=== PATIENT | male | born 1960 | race Hispanic/Latino ===

== ENCOUNTER 2022-10-18 00:15 | Inpatient (IN) | payer BC ==
[2022-10-18 03:59] LABS: #Eosinphils 0.2 thou/uL (0.0-0.7); #Lymphocytes 2.4 thou/uL (1.20-3.40); #Monocytes 0.7 thou/uL (0.11-0.59); #Neutrophils 7.4 thou/uL (1.40-6.50); %Basophils 0.2 % (0.0-1.0); %Eosinophils 1.5 % (0.0-10.0); %Monocytes 6.7 % (0.0-10.0); %Neutrophils 69.6 % (42.0-75.0); Hemoglobin 13.9 g/dL (14.0-18.0); Mean Corpuscular HGB CONC 32.8 g/dL (32.0-36.0); Mean Corpuscular Hemoglobin 27.8 pg (27.0-31.0); Mean Corpuscular Volume 84.6 fl (78.0-98.0); Mean Platelet Volume 7.7 fL (7.4-10.4); Platelet Count 276 10x3/uL (130-400); RBC Distribution Width 13.1 % (11.5-14.5); Red Blood Cell (RBC) Count 4.99 mill/uL (4.70-6.10); White Blood Cell (WBC) Count 10.7 10x3/uL (4.8-10.8)
[2022-10-18 04:10] LABS: ALT (SGPT) 7 U/L (8-55); AST (SGOT) 12 U/L (5-34); Albumin 3.4 g/dL (3.5-5.0); Alkaline Phosphatase 68 U/L (40-110); Anion Gap 14 mmol/L (10-20); BUN (Urea Nitrogen) 15 mg/dL (8.4-25.7); Bilirubin, Total 0.9 mg/dL (0.2-1.2); Calc. Creatinine Clearance 0 mL/min (70-130); Carbon Dioxide 21 mmol/L (22-29); Chloride 105 mmol/L (98-107); Estimated GFR 59; Globulin 2.9 g/dL (2.4-3.5); Glucose 198 mg/dL (70-105); Potassium 4.2 mmol/L (3.5-5.1); Protein, Total 6.3 g/dL (6.0-8.3); Sodium 136 mmol/L (136-145)
[2022-10-18] MEDS ORDERED: Furosemide 40 MG/4 ML VIAL ONE (04:27)
[2022-10-18] MEDS ORDERED: Nitroglycerin 2% Ointment 1 INCH/1 GM Packet ONE (04:27)
[2022-10-18 04:35] LABS: CKMB 1.6 ng/mL (0-6.6)
[2022-10-18] MEDS ORDERED: Aspirin Chewable 81 MG TAB ONE (05:15)
[2022-10-18 05:52] LABS: Prothrombin Time 13.1 sec (12.0-14.7)
[2022-10-18 05:54] LABS: Magnesium 2.1 mg/dL (1.6-2.6)
[2022-10-18 07:44] LABS: Troponin I 0.402 ng/mL (< 0.028)
[2022-10-18] MEDS ORDERED: Ondansetron PF 4 MG/2 ML Vial IVP PRN (07:59)
[2022-10-18] MEDS ORDERED: Ondansetron ODT 4 MG TAB PO PRN (07:59)
[2022-10-18] MEDS ORDERED: Acetaminophen 325 MG TAB PO PRN (07:59)
[2022-10-18] MEDS ORDERED: Dextrose 50% Abboject 50 ML SYRINGE SLOW IVP PRN (08:16)
[2022-10-18] MEDS ORDERED: Dextrose 5% in Water 1,000 ML IV PRN (08:16)
[2022-10-18 09:40] LABS: Hemoglobin A1c 10.3 % (4.0-6.0)
[2022-10-18 10:17] LABS: Critical Call Chem Troponin I RESULT DECREASING; Troponin I 0.379 ng/mL (< 0.028)
[2022-10-18] MEDS ORDERED: HumaLOG 300 UNITS/3 ML VIAL ONE (10:47)
[2022-10-18] MEDS: HumaLOG 300 UNITS/3 ML VIAL SC PRN (10:48)
[2022-10-18] MEDS ORDERED: Acetaminophen 325 MG TAB ONE (10:51)
[2022-10-18 12:18] LABS: SARS-CoV-2 NAA Rapid Test Not Detected (NotDetected)
[2022-10-18 15:14] VITALS: BMI 47.7
[2022-10-18] MEDS ORDERED: Ketorolac Tromethamine 30 MG/ML VIAL IVP SCH (16:30)
[2022-10-18] MEDS: Metoprolol Tartrate 100 MG TAB PO SCH (21:16)
[2022-10-18] MEDS: Atorvastatin Calcium 20 MG TAB PO SCH (21:16)
[2022-10-19 04:54] LABS: #Basophils 0.1 thou/uL (0.0-0.2); #Eosinphils 0.2 thou/uL (0.0-0.7); #Monocytes 0.7 thou/uL (0.11-0.59); #Neutrophils 6.5 thou/uL (1.40-6.50); %Basophils 0.5 % (0.0-1.0); %Eosinophils 2.3 % (0.0-10.0); %Lymphocytes 21.4 % (21.0-51.0); %Monocytes 7.4 % (0.0-10.0); %Neutrophils 68.3 % (42.0-75.0); Hemoglobin 13.9 g/dL (14.0-18.0); Mean Corpuscular HGB CONC 32.6 g/dL (32.0-36.0); Mean Corpuscular Hemoglobin 27.4 pg (27.0-31.0); Mean Corpuscular Volume 84.3 fl (78.0-98.0); Mean Platelet Volume 7.8 fL (7.4-10.4); Platelet Count 301 10x3/uL (130-400); RBC Distribution Width 13.3 % (11.5-14.5); Red Blood Cell (RBC) Count 5.06 mill/uL (4.70-6.10); White Blood Cell (WBC) Count 9.5 10x3/uL (4.8-10.8)
[2022-10-19 05:15] LABS: Anion Gap 16 mmol/L (10-20); BUN (Urea Nitrogen) 16 mg/dL (8.4-25.7); Calc. Creatinine Clearance 99 mL/min (70-130); Calcium 9.1 mg/dL (7.8-10.44); Carbon Dioxide 21 mmol/L (22-29); Cardiac Risk 4.8 (Less than 4.5); Chloride 102 mmol/L (98-107); Cholesterol 227 mg/dl (< 200 Desired); Estimated GFR 51; Glucose 231 mg/dL (70-105); HDL Cholesterol 47 mg/dL (>60 Neg Risk); LDL Cholesterol, Calculated 134 mg/dL; Potassium 4.1 mmol/L (3.5-5.1); Sodium 135 mmol/L (136-145); Triglycerides 231 mg/dL (Less than 150)
[2022-10-19] MEDS: Aspirin 81 mg Enteric Coated Tablet PO SCH (08:49)
[2022-10-19] MEDS: Metoprolol Tartrate 100 MG TAB PO SCH ×2 (08:49→21:54)
[2022-10-19] MEDS: Valsartan 80 MG TAB PO SCH (08:50)
[2022-10-19] MEDS: Atorvastatin Calcium 20 MG TAB PO SCH (21:54)
[2022-10-20] MEDS ORDERED: cloNIDine 0.1 MG TAB PO SCH (00:15)
[2022-10-20 05:19] LABS: #Eosinphils 0.2 thou/uL (0.0-0.7); #Monocytes 0.8 thou/uL (0.11-0.59); #Neutrophils 5.4 thou/uL (1.40-6.50); %Basophils 0.5 % (0.0-1.0); %Eosinophils 2.9 % (0.0-10.0); %Lymphocytes 23.7 % (21.0-51.0); %Monocytes 9.5 % (0.0-10.0); %Neutrophils 63.4 % (42.0-75.0); Hemoglobin 13.9 g/dL (14.0-18.0); Mean Corpuscular HGB CONC 32.5 g/dL (32.0-36.0); Mean Corpuscular Volume 86.3 fl (78.0-98.0); Mean Platelet Volume 8.7 fL (7.4-10.4); Platelet Count 242 10x3/uL (130-400); RBC Distribution Width 13.4 % (11.5-14.5); Red Blood Cell (RBC) Count 4.95 mill/uL (4.70-6.10); White Blood Cell (WBC) Count 8.5 10x3/uL (4.8-10.8)
[2022-10-20 05:53] LABS: Anion Gap 15 mmol/L (10-20); BUN (Urea Nitrogen) 19 mg/dL (8.4-25.7); Calc. Creatinine Clearance 88 mL/min (70-130); Calcium 8.8 mg/dL (7.8-10.44); Carbon Dioxide 20 mmol/L (22-29); Chloride 103 mmol/L (98-107); Estimated GFR 44; Glucose 241 mg/dL (70-105); Potassium 4.7 mmol/L (3.5-5.1); Sodium 133 mmol/L (136-145)
[2022-10-20] MEDS: Valsartan 80 MG TAB PO SCH (06:17)
[2022-10-20] MEDS: Metoprolol Tartrate 100 MG TAB PO SCH (06:17)
[2022-10-20] MEDS: Aspirin 81 mg Enteric Coated Tablet PO SCH (06:17)
[2022-10-20] MEDS: Sodium Chloride 0.9% 1,000 ML IV SCH (13:31)
[2022-10-20] MEDS ORDERED: Valsartan 80 MG TAB PO SCH (16:04)
[2022-10-20] MEDS ORDERED: Carvedilol 25 MG TAB PO SCH (16:15)
[2022-10-20] MEDS: hydrALAZINE 25 MG TAB PO SCH ×2 (16:54→20:34)
[2022-10-20] MEDS: HumaLOG 300 UNITS/3 ML VIAL SC PRN ×2 (16:59→20:32)
[2022-10-20] MEDS: Atorvastatin Calcium 20 MG TAB PO SCH (20:34)
[2022-10-21] MEDS ORDERED: cloNIDine 0.1 MG TAB PO SCH ×2 (00:30→23:59)
[2022-10-21] MEDS: Sodium Chloride 0.9% 1,000 ML IV SCH ×3 (01:50→21:31)
[2022-10-21 04:51] LABS: #Eosinphils 0.2 thou/uL (0.0-0.7); #Lymphocytes 2.1 thou/uL (1.20-3.40); #Monocytes 0.9 thou/uL (0.11-0.59); #Neutrophils 4.7 thou/uL (1.40-6.50); %Basophils 0.6 % (0.0-1.0); %Eosinophils 2.6 % (0.0-10.0); %Lymphocytes 26.1 % (21.0-51.0); %Monocytes 11.3 % (0.0-10.0); %Neutrophils 59.5 % (42.0-75.0); Hemoglobin 12.6 g/dL (14.0-18.0); Mean Corpuscular HGB CONC 32.9 g/dL (32.0-36.0); Mean Corpuscular Hemoglobin 28.4 pg (27.0-31.0); Mean Corpuscular Volume 86.2 fl (78.0-98.0); Mean Platelet Volume 7.8 fL (7.4-10.4); Platelet Count 254 10x3/uL (130-400); RBC Distribution Width 13.2 % (11.5-14.5); Red Blood Cell (RBC) Count 4.44 mill/uL (4.70-6.10); White Blood Cell (WBC) Count 7.9 10x3/uL (4.8-10.8)
[2022-10-21 05:13] LABS: Anion Gap 13 mmol/L (10-20); BUN (Urea Nitrogen) 19 mg/dL (8.4-25.7); Calc. Creatinine Clearance 94 mL/min (70-130); Calcium 8.9 mg/dL (7.8-10.44); Carbon Dioxide 23 mmol/L (22-29); Chloride 104 mmol/L (98-107); Estimated GFR 47; Glucose 190 mg/dL (70-105); Potassium 3.9 mmol/L (3.5-5.1); Sodium 136 mmol/L (136-145)
[2022-10-21] MEDS: HumaLOG 300 UNITS/3 ML VIAL SC PRN ×3 (05:51→20:42)
[2022-10-21] MEDS: Aspirin 81 mg Enteric Coated Tablet PO SCH (09:11)
[2022-10-21] MEDS: Carvedilol 25 MG TAB PO SCH ×2 (09:11→17:25)
[2022-10-21] MEDS: Valsartan 80 MG TAB PO SCH (09:11)
[2022-10-21] MEDS: hydrALAZINE 25 MG TAB PO SCH ×4 (09:11→20:41)
[2022-10-21] MEDS: HYDROcodone/Acetaminophen 10/325 mg Tablet PO PRN (13:19)
[2022-10-21] MEDS: Atorvastatin Calcium 20 MG TAB PO SCH (20:42)
[2022-10-22] MEDS: HYDROcodone/Acetaminophen 10/325 mg Tablet PO PRN ×2 (01:30→21:36)
[2022-10-22 04:58] LABS: #Eosinphils 0.3 thou/uL (0.0-0.7); #Lymphocytes 2.5 thou/uL (1.20-3.40); %Basophils 0.3 % (0.0-1.0); %Eosinophils 3.2 % (0.0-10.0); %Neutrophils 57.4 % (42.0-75.0); Hemoglobin 12.4 g/dL (14.0-18.0); Mean Corpuscular HGB CONC 32.5 g/dL (32.0-36.0); Mean Corpuscular Hemoglobin 28.1 pg (27.0-31.0); Mean Corpuscular Volume 86.4 fl (78.0-98.0); Mean Platelet Volume 7.6 fL (7.4-10.4); Platelet Count 271 10x3/uL (130-400); RBC Distribution Width 13.2 % (11.5-14.5); Red Blood Cell (RBC) Count 4.42 mill/uL (4.70-6.10); White Blood Cell (WBC) Count 8.7 10x3/uL (4.8-10.8)
[2022-10-22 05:26] LABS: Anion Gap 13 mmol/L (10-20); BUN (Urea Nitrogen) 17 mg/dL (8.4-25.7); Calc. Creatinine Clearance 104 mL/min (70-130); Calcium 8.8 mg/dL (7.8-10.44); Carbon Dioxide 23 mmol/L (22-29); Chloride 105 mmol/L (98-107); Estimated GFR 53; Glucose 169 mg/dL (70-105); Sodium 137 mmol/L (136-145)
[2022-10-22] MEDS: Carvedilol 25 MG TAB PO SCH ×2 (08:00→16:44)
[2022-10-22] MEDS: hydrALAZINE 25 MG TAB PO SCH ×3 (09:06→20:17)
[2022-10-22] MEDS: Valsartan 80 MG TAB PO SCH (09:06)
[2022-10-22] MEDS: Aspirin 81 mg Enteric Coated Tablet PO SCH (09:06)
[2022-10-22] MEDS ORDERED: Carvedilol 25 MG TAB PO SCH ×2 (10:23→10:45)
[2022-10-22] MEDS: HumaLOG 300 UNITS/3 ML VIAL SC PRN ×3 (10:55→21:34)
[2022-10-22] MEDS: Atorvastatin Calcium 20 MG TAB PO SCH (20:17)
[2022-10-23] MEDS: cloNIDine 0.1 MG TAB PO PRN (00:15)
[2022-10-23 05:28] LABS: #Basophils 0.1 thou/uL (0.0-0.2); #Eosinphils 0.2 thou/uL (0.0-0.7); #Lymphocytes 1.9 thou/uL (1.20-3.40); #Monocytes 0.8 thou/uL (0.11-0.59); #Neutrophils 4.6 thou/uL (1.40-6.50); %Basophils 0.7 % (0.0-1.0); %Eosinophils 3.3 % (0.0-10.0); %Lymphocytes 25.3 % (21.0-51.0); %Monocytes 10.4 % (0.0-10.0); %Neutrophils 60.4 % (42.0-75.0); Hemoglobin 12.7 g/dL (14.0-18.0); Mean Corpuscular HGB CONC 32.3 g/dL (32.0-36.0); Mean Corpuscular Volume 86.8 fl (78.0-98.0); Mean Platelet Volume 7.7 fL (7.4-10.4); Platelet Count 277 10x3/uL (130-400); RBC Distribution Width 13.2 % (11.5-14.5); Red Blood Cell (RBC) Count 4.55 mill/uL (4.70-6.10); White Blood Cell (WBC) Count 7.6 10x3/uL (4.8-10.8)
[2022-10-23 05:45] LABS: Anion Gap 14 mmol/L (10-20); BUN (Urea Nitrogen) 18 mg/dL (8.4-25.7); Calc. Creatinine Clearance 100 mL/min (70-130); Calcium 8.9 mg/dL (7.8-10.44); Carbon Dioxide 24 mmol/L (22-29); Chloride 104 mmol/L (98-107); Estimated GFR 51; Glucose 206 mg/dL (70-105); Potassium 4.5 mmol/L (3.5-5.1); Sodium 137 mmol/L (136-145)
[2022-10-23] MEDS: HumaLOG 300 UNITS/3 ML VIAL SC PRN ×4 (05:55→22:11)
[2022-10-23] MEDS: Carvedilol 25 MG TAB PO SCH ×2 (08:09→17:17)
[2022-10-23] MEDS: Valsartan 80 MG TAB PO SCH (08:09)
[2022-10-23] MEDS: hydrALAZINE 25 MG TAB PO SCH ×3 (08:09→22:08)
[2022-10-23] MEDS: Aspirin 81 mg Enteric Coated Tablet PO SCH (08:09)
[2022-10-23] MEDS ORDERED: Tamsulosin HCl 0.4 MG CAP PO SCH (10:00)
[2022-10-23] MEDS: Isosorbide Dinitrate 20 MG TAB PO SCH ×2 (15:19→22:08)
[2022-10-23] MEDS: Atorvastatin Calcium 20 MG TAB PO SCH (22:07)
[2022-10-24 05:16] LABS: Anion Gap 12 mmol/L (10-20); BUN (Urea Nitrogen) 24 mg/dL (8.4-25.7); Calc. Creatinine Clearance 93 mL/min (70-130); Calcium 8.7 mg/dL (7.8-10.44); Carbon Dioxide 24 mmol/L (22-29); Chloride 105 mmol/L (98-107); Estimated GFR 47; Glucose 241 mg/dL (70-105); Magnesium 2.2 mg/dL (1.6-2.6); Potassium 4.2 mmol/L (3.5-5.1); Sodium 137 mmol/L (136-145)
[2022-10-24] MEDS: Valsartan 80 MG TAB PO SCH (05:57)
[2022-10-24] MEDS: hydrALAZINE 25 MG TAB PO SCH ×3 (05:58→21:58)
[2022-10-24] MEDS: Aspirin 81 mg Enteric Coated Tablet PO SCH (05:59)
[2022-10-24] MEDS: Carvedilol 25 MG TAB PO SCH ×2 (05:59→16:47)
[2022-10-24] MEDS: Tamsulosin HCl 0.4 MG CAP PO SCH (05:59)
[2022-10-24] MEDS: Isosorbide Dinitrate 20 MG TAB PO SCH ×3 (06:00→21:58)
[2022-10-24] MEDS ORDERED: Verapamil 5 MG/2 ML VIAL ONE (06:24)
[2022-10-24] MEDS ORDERED: Nitroglycerin 100MG/250ML BOT 250 ML ONE (06:24)
[2022-10-24] MEDS ORDERED: Adenosine 6 MG/2 ML VIAL ONE (06:24)
[2022-10-24] MEDS ORDERED: Heparin 10,000 UNITS/ 10 ML VIAL ONE (06:24)
[2022-10-24] MEDS ORDERED: Lidocaine 1% (PF) 30 ML VIAL ONE (06:26)
[2022-10-24] MEDS ORDERED: Midazolam HCl 2 mg/2 ml Vial ONE (07:18)
[2022-10-24] MEDS ORDERED: FENTANYL 50 MCG/ML 1 ML VIAL ONE (07:18)
[2022-10-24] MEDS ORDERED: Nitroglycerin 0.4 MG TAB (25 Tab Bottle) SL PRN (08:41)
[2022-10-24] MEDS ORDERED: Acetaminophen/Codeine 30-300mg Tablet PO PRN (08:41)
[2022-10-24] MEDS ORDERED: Sodium Chloride 0.9% 200 ML IV PRN (08:41)
[2022-10-24] MEDS ORDERED: Sodium Chloride 0.9% 500 ML IV SCH (08:45)
[2022-10-24] MEDS ORDERED: Iopamidol 370 76% 100 ML VIAL ONE (09:14)
[2022-10-24 13:10] LABS: Bacteria/HPF None Seen HPF (None Seen); Bilirubin Negative (Negative); Blood, Urine Negative (Negative); Clarity Clear (Clear); Glucose, Urine (Dipstick) >=1000 mg/dL (Negative); Ketone, Urine Negative (Negative); Leukocyte Negative Leu/uL (Negative); Nitrite Negative (Negative); Protein, Urine (Dipstick) 200 mg/dL (Neg-Trace); RBC/HPF 0-3 HPF (0-3); Squamous Epithelial 0-3 HPF (0-3); Urobilinogen Normal mg/dL (Less than 2); WBC/HPF 0-3 HPF (0-3)
[2022-10-24 14:04] LABS: Creatinine, Urine 93.92 mg/dL (63-166)
[2022-10-24] MEDS: HumaLOG 300 UNITS/3 ML VIAL SC PRN ×2 (17:44→21:59)
[2022-10-24] MEDS: Atorvastatin Calcium 20 MG TAB PO SCH (21:58)
[2022-10-25 05:30] LABS: Albumin 3.3 g/dL (3.5-5.0)
[2022-10-25 05:33] LABS: Anion Gap 10 mmol/L (10-20); BUN (Urea Nitrogen) 19 mg/dL (8.4-25.7); Calc. Creatinine Clearance 98 mL/min (70-130); Carbon Dioxide 26 mmol/L (22-29); Chloride 106 mmol/L (98-107); Estimated GFR 50; Glucose 209 mg/dL (70-105); Potassium 4.3 mmol/L (3.5-5.1); Sodium 138 mmol/L (136-145)
[2022-10-25 05:34] LABS: Calcium 9.1 mg/dL (7.8-10.44)
[2022-10-25] MEDS: Aspirin 81 mg Enteric Coated Tablet PO SCH (08:58)
[2022-10-25] MEDS: Tamsulosin HCl 0.4 MG CAP PO SCH (08:58)
[2022-10-25] MEDS: hydrALAZINE 25 MG TAB PO SCH (08:58)
[2022-10-25] MEDS: Isosorbide Dinitrate 20 MG TAB PO SCH (08:58)
[2022-10-25] MEDS: Carvedilol 25 MG TAB PO SCH (09:05)
[2022-10-25] MEDS: cloNIDine 0.1 MG TAB PO PRN (09:05)
[2022-10-25] MEDS ORDERED: hydrALAZINE 25 MG TAB PO SCH ×2 (09:15→14:00)
[2022-10-25] MEDS ORDERED: Isosorbide Dinitrate 20 MG TAB PO SCH ×3 (09:15→21:00)
[2022-10-25] MEDS: HumaLOG 300 UNITS/3 ML VIAL SC PRN (11:35)
[2022-10-25] MEDS ORDERED: Carvedilol 25 MG TAB PO SCH (17:00)
[2022-10-25 17:45] VITALS: BP 174/88; TEMP 98.4
== END 2022-10-25 18:37 | disposition home or self-care (01) | DRG 280 ==
LOC: ERS 00:15 → ERHOLD 05:06 → 2SW 14:16
PROVIDERS: ADMIT Hospitalist; ATTEND Hospitalist
PROC: 4A023N7 Measurement of Cardiac Sampling and Pressure, Left Heart, Percutaneous Approach (ICD-10-PCS; principal; 2022-10-24)
PROC: B2151ZZ Fluoroscopy of Left Heart using Low Osmolar Contrast (ICD-10-PCS; 2022-10-24)
PROC: B2111ZZ Fluoroscopy of Multiple Coronary Arteries using Low Osmolar Contrast (ICD-10-PCS; 2022-10-24)
DX: I13.0 Hypertensive heart and chronic kidney disease with heart failure and stage 1 through stage 4 chronic kidney disease, or unspecified chronic kidney disease (principal); I50.43 Acute on chronic combined systolic (congestive) and diastolic (congestive) heart failure; I21.4 Non-ST elevation (NSTEMI) myocardial infarction; N17.9 Acute kidney failure, unspecified; Z68.42 Body mass index [BMI] 45.0-49.9, adult; T82.855A Stenosis of coronary artery stent, initial encounter; I25.10 Atherosclerotic heart disease of native coronary artery without angina pectoris; E88.81 Metabolic syndrome and other insulin resistance; E66.01 Morbid (severe) obesity due to excess calories; Y83.1 Surgical operation with implant of artificial internal device as the cause of abnormal reaction of the patient, or of later complication, without mention of misadventure at the time of the procedure; E78.5 Hyperlipidemia, unspecified; N18.30 Chronic kidney disease, stage 3 unspecified; E11.22 Type 2 diabetes mellitus with diabetic chronic kidney disease; E11.65 Type 2 diabetes mellitus with hyperglycemia; I25.5 Ischemic cardiomyopathy; I42.0 Dilated cardiomyopathy; E86.9 Volume depletion, unspecified; Z95.5 Presence of coronary angioplasty implant and graft; Z87.891 Personal history of nicotine dependence; Z86.711 Personal history of pulmonary embolism; Z79.899 Other long term (current) drug therapy; Z79.82 Long term (current) use of aspirin; Z79.84 Long term (current) use of oral hypoglycemic drugs
CPT/HCPCS: 36415; 36416; 71046; 76770; 80048; 80053; 80061; 81001; 82040; 82550; 82553; 82570; 83036; 83735; 83880; 84156; 84300; 84443; 84484; 84540; 85025; 85610; 85730; 87811; 93005; 93010; 93306; 93458; 93798; 93975; 96372; 96374; 99152; 99153; C1769; C1894; J0153; J1644; J1650; J1815; J1885; J1940; J2001; J2250; J3010; J7030; J7050; U0002

== ENCOUNTER 2022-12-30 14:38 | Outpatient (CLI) | payer BC | END 2022-12-30 14:39 | disposition home or self-care (01) | LOC: BICRAD 14:38 | PROVIDERS: ATTEND Student in an Organized Health Care Education/Training Program | DX: M54.32 Sciatica, left side (principal); M47.816 Spondylosis without myelopathy or radiculopathy, lumbar region | CPT/HCPCS: 72100 ==

== ENCOUNTER 2024-03-06 16:21 | Outpatient (CLI) | payer BC | END 2024-03-06 16:22 | disposition home or self-care (01) | LOC: BICRAD 16:21 | PROVIDERS: ATTEND Internal Medicine Cardiovascular Disease | DX: R06.02 Shortness of breath (principal) | CPT/HCPCS: 71046 ==

== ENCOUNTER 2024-03-24 17:26 | Emergency (ER) | payer BC ==
[~2024-03-24 17:26] MED LIST: Iopamidol 370 76% 100 ML VIAL ONE
[2024-03-24 18:19] LABS: #Basophils 0.04 10x3/uL (0.0-0.2); %Basophils 0.4 % (0.0-1.0); %Eosinophils 1.7 % (0.0-10.0); %Lymphocytes 12.4 % (21.0-51.0); %Monocytes 5.3 % (0.0-10.0); Hematocrit 37.4 % (42.0-52.0); Hemoglobin 11.6 g/dL (14.0-18.0); Mean Corpuscular Hemoglobin 27.1 pg (27.0-31.0); Mean Corpuscular Volume 87.4 fL (78.0-98.0); Mean Platelet Volume 10.4 fL (7.4-10.4); Platelet Count 263 10x3/uL (130-400); RBC Distribution Width 14.2 % (11.5-14.5); Red Blood Cell (RBC) Count 4.28 mill/uL (4.70-6.10)
[2024-03-24 18:40] LABS: ALT (SGPT) 18 U/L (8-55); AST (SGOT) 20 U/L (5-34); Albumin 3.5 g/dL (3.4-4.8); Alkaline Phosphatase 68 U/L (40-110); Anion Gap 17 mmol/L (10-20); BUN (Urea Nitrogen) 28 mg/dL (8.4-25.7); Bilirubin, Total 0.7 mg/dL (0.2-1.2); Calc. Creatinine Clearance 0 mL/min (70-130); Calcium 9.1 mg/dL (7.8-10.44); Carbon Dioxide 19 mmol/L (23-31); Chloride 108 mmol/L (98-107); Estimated GFR 34; Glucose 123 mg/dL (80-115); Potassium 5.2 mmol/L (3.5-5.1); Protein, Total 6.5 g/dL (5.8-8.1); Sodium 139 mmol/L (136-145)
[2024-03-24 18:44] LABS: Critical Call Chem Troponin I NUR.CT6@1844; Troponin I 1.302 ng/mL (< 0.028)
[2024-03-24] MEDS ORDERED: Aspirin Chewable 81 MG TAB ONE (18:55)
[2024-03-24 19:54] LABS: Magnesium 2.2 mg/dL (1.6-2.6)
[2024-03-24 19:57] LABS: INR-International Normal Ratio 1.1; PTT 32.5 sec (22.9-36.1); Prothrombin Time 14.1 sec (12.0-14.7)
[2024-03-24] MEDS ORDERED: Furosemide 20 MG (2 mL) VIAL ONE (19:57)
[2024-03-24] MEDS ORDERED: Ondansetron PF 4 MG/2 ML Vial IVP PRN (20:45)
[2024-03-24] MEDS ORDERED: Ondansetron ODT 4 MG TAB SL PRN (20:45)
[2024-03-24] MEDS ORDERED: Acetaminophen 325 MG TAB PO PRN (20:45)
[2024-03-24] MEDS ORDERED: Enoxaparin 60 MG (0.6 mL) SYRINGE ONE (20:57)
[2024-03-24] MEDS ORDERED: hydrALAZINE 25 MG TAB ONE (20:57)
[2024-03-24] MEDS ORDERED: Nitroglycerin 2% Ointment 1 INCH/1 GM Packet ONE (21:50)
[2024-03-24 21:55] LABS: Critical Call Chem Troponin I NUR.JLS2 @2154; Troponin I 1.397 ng/mL (< 0.028)
[2024-03-24] MEDS ORDERED: dilTIAZem 25 MG/5 ML VIAL ONE (21:59)
[2024-03-24] MEDS ORDERED: Metoprolol Tartrate 5 MG (5 mL) VIAL ONE (23:41)
[2024-03-25 00:46] LABS: Critical Call Chem Troponin I RESULT DECREASING; Troponin I 1.381 ng/mL (< 0.028)
== END 2024-03-25 01:40 | disposition short-term general hospital (02) ==
LOC: ERS 17:26 → UNDOADMIN 20:36 → ERHOLD 20:36 → ERS 03-25 01:40
DX: I21.4 Non-ST elevation (NSTEMI) myocardial infarction (principal); N17.9 Acute kidney failure, unspecified; I11.0 Hypertensive heart disease with heart failure; I50.9 Heart failure, unspecified; E87.5 Hyperkalemia; E78.5 Hyperlipidemia, unspecified; Z79.82 Long term (current) use of aspirin; Z79.84 Long term (current) use of oral hypoglycemic drugs; Z79.899 Other long term (current) drug therapy; Z87.891 Personal history of nicotine dependence
CPT/HCPCS: 36415; 71045; 71275; 80053; 83735; 83880; 84443; 84484; 85025; 85610; 85730; 93005; 94760; 96374; 96375; J1650; J1940; Q9967

== ENCOUNTER 2025-06-18 23:21 | Inpatient (IN) | payer BC ==
[2025-06-19 00:23] LABS: #Basophils Less than 0.03 10x3/uL (0.0-0.2); #Eosinophils 0.17 10x3/uL (0.0-0.7); #Monocytes 0.48 10x3/uL (0.11-0.59); #Neutrophils 7.94 10x3/uL (1.40-6.50); %Basophils 0.2 % (0.0-1.0); %Eosinophils 1.8 % (0.0-10.0); %Lymphocytes 7.4 % (21.0-51.0); %Monocytes 5.1 % (0.0-10.0); %Neutrophils 85.2 % (42.0-75.0); Hematocrit 34.1 % (42.0-52.0); Hemoglobin 10.7 g/dL (14.0-18.0); Mean Corpuscular Hemoglobin 26.2 pg (27.0-31.0); Mean Corpuscular Volume 83.4 fL (78.0-98.0); Platelet Count 234 10x3/uL (130-400); Red Blood Cell (RBC) Count 4.09 mill/uL (4.70-6.10); White Blood Cell (WBC) Count 9.33 10x3/uL (4.8-10.8)
[2025-06-19 00:40] LABS: ALT (SGPT) Less than 7 U/L (Less than 45); AST (SGOT) 16 U/L (11-34); Albumin 3.7 g/dL (3.1-4.5); Alkaline Phosphatase 61 U/L (40-110); Anion Gap 18 mmol/L (10-20); BUN (Urea Nitrogen) 17 mg/dL (8.4-25.7); Bilirubin, Total 1.3 mg/dL (0.3-1.2); Calc. Creatinine Clearance 0 mL/min (70-130); Calcium 9.6 mg/dL (7.8-10.44); Carbon Dioxide 19 mmol/L (23-31); Chloride 108 mmol/L (98-107); Globulin 3.1 g/dL (2.4-3.5); Glucose 121 mg/dL (80-115); Potassium 3.5 mmol/L (3.5-5.1); Sodium 141 mmol/L (136-145)
[2025-06-19] MEDS ORDERED: Furosemide 40 MG (4 mL) VIAL ONE (02:37)
[2025-06-19] MEDS ORDERED: Glucagon 1 MG/ML KIT IM PRN (03:23)
[2025-06-19] MEDS ORDERED: Dextrose 50% Abboject 50 ML SYRINGE SLOW IVP PRN (03:23)
[2025-06-19] MEDS: Carvedilol 25 MG TAB PO SCH (07:59)
[2025-06-19] MEDS: Apixaban 5 MG TAB PO SCH (07:59)
[2025-06-19] MEDS: Calcitriol 0.25 MCG CAP PO SCH (08:00)
[2025-06-19] MEDS: Furosemide 40 MG (4 mL) VIAL SLOW IVP SCH (08:00)
[2025-06-19 08:06] LABS: #Basophils 0.04 10x3/uL (0.0-0.2); #Eosinophils 0.17 10x3/uL (0.0-0.7); #Monocytes 0.52 10x3/uL (0.11-0.59); #Neutrophils 7.24 10x3/uL (1.40-6.50); %Basophils 0.5 % (0.0-1.0); %Eosinophils 1.9 % (0.0-10.0); %Lymphocytes 8.2 % (21.0-51.0); %Monocytes 6.0 % (0.0-10.0); %Neutrophils 82.9 % (42.0-75.0); Hematocrit 31.7 % (42.0-52.0); Hemoglobin 10.0 g/dL (14.0-18.0); Mean Corpuscular Hemoglobin 26.6 pg (27.0-31.0); Mean Corpuscular Volume 84.3 fL (78.0-98.0); Platelet Count 217 10x3/uL (130-400); Red Blood Cell (RBC) Count 3.76 mill/uL (4.70-6.10); White Blood Cell (WBC) Count 8.73 10x3/uL (4.8-10.8)
[2025-06-19 08:20] LABS: ALT (SGPT) Less than 7 U/L (Less than 45); AST (SGOT) 13 U/L (11-34); Albumin 3.4 g/dL (3.1-4.5); Alkaline Phosphatase 57 U/L (40-110); Anion Gap 16 mmol/L (10-20); BUN (Urea Nitrogen) 17 mg/dL (8.4-25.7); Bilirubin, Total 1.2 mg/dL (0.3-1.2); Calc. Creatinine Clearance 49 mL/min (70-130); Calcium 9.1 mg/dL (7.8-10.44); Carbon Dioxide 19 mmol/L (23-31); Chloride 109 mmol/L (98-107); Globulin 2.8 g/dL (2.4-3.5); Glucose 108 mg/dL (80-115); Potassium 3.3 mmol/L (3.5-5.1); Sodium 141 mmol/L (136-145)
[2025-06-19 09:43] LABS: Iron 28 ug/dL (65-175); Iron Binding Capacity, Total 236 mcg/dL (261-462)
[2025-06-19] MEDS: NIFEdipine XL 60 MG ER.TAB PO SCH (11:16)
[2025-06-19 14:14] LABS: Influenza A by NAA Not Detected (NotDetected); Influenza B by NAA Not Detected (NotDetected); SARS-CoV-2 NAA Rapid Test Not Detected (NotDetected)
[2025-06-19] MEDS: Dapagliflozin Propanediol 10 MG TAB PO SCH (14:29)
[2025-06-19 16:11] VITALS: BMI 38.7
[2025-06-19] MEDS ORDERED: Electrolyte Replacement Protocol 1 EACH FS PRN (19:53)
[2025-06-19 20:16] LABS: Magnesium 2.2 mg/dL (1.6-2.6)
[2025-06-19] MEDS: Simvastatin 10 MG TAB PO SCH (20:49)
[2025-06-19] MEDS ORDERED: Simvastatin 40 MG TAB PO SCH (21:00)
[2025-06-20 05:38] LABS: #Basophils 0.04 10x3/uL (0.0-0.2); #Eosinophils 0.17 10x3/uL (0.0-0.7); #Monocytes 0.59 10x3/uL (0.11-0.59); #Neutrophils 8.16 10x3/uL (1.40-6.50); %Basophils 0.4 % (0.0-1.0); %Eosinophils 1.7 % (0.0-10.0); %Lymphocytes 9.8 % (21.0-51.0); %Monocytes 5.9 % (0.0-10.0); %Neutrophils 81.8 % (42.0-75.0); Hematocrit 33.4 % (42.0-52.0); Hemoglobin 10.4 g/dL (14.0-18.0); Mean Corpuscular Hemoglobin 26.3 pg (27.0-31.0); Mean Corpuscular Volume 84.3 fL (78.0-98.0); Platelet Count 238 10x3/uL (130-400); Red Blood Cell (RBC) Count 3.96 mill/uL (4.70-6.10); White Blood Cell (WBC) Count 9.98 10x3/uL (4.8-10.8)
[2025-06-20 05:53] LABS: ALT (SGPT) Less than 7 U/L (Less than 45); AST (SGOT) 14 U/L (11-34); Albumin 3.6 g/dL (3.1-4.5); Alkaline Phosphatase 59 U/L (40-110); Anion Gap 15 mmol/L (10-20); BUN (Urea Nitrogen) 17 mg/dL (8.4-25.7); Bilirubin, Total 0.9 mg/dL (0.3-1.2); Calc. Creatinine Clearance 46 mL/min (70-130); Calcium 9.1 mg/dL (7.8-10.44); Carbon Dioxide 21 mmol/L (23-31); Chloride 109 mmol/L (98-107); Globulin 2.7 g/dL (2.4-3.5); Glucose 99 mg/dL (80-115); Potassium 3.4 mmol/L (3.5-5.1); Sodium 142 mmol/L (136-145)
[2025-06-20] MEDS ORDERED: Dapagliflozin Propanediol 10 MG TAB PO SCH (09:00)
[2025-06-20] MEDS: Furosemide 20 MG (2 mL) VIAL SLOW IVP SCH (09:12)
[2025-06-20] MEDS: NIFEdipine XL 60 MG ER.TAB PO SCH (09:13)
[2025-06-20] MEDS: Acetaminophen 325 MG TAB PO PRN (10:43)
[2025-06-20] MEDS ORDERED: Furosemide 20 MG TAB PO SCH (14:00)
[2025-06-20] MEDS: Furosemide 40 MG TAB PO SCH (16:53)
[2025-06-21 05:30] LABS: #Basophils 0.04 10x3/uL (0.0-0.2); #Eosinophils 0.20 10x3/uL (0.0-0.7); #Monocytes 0.63 10x3/uL (0.11-0.59); #Neutrophils 6.81 10x3/uL (1.40-6.50); %Basophils 0.5 % (0.0-1.0); %Eosinophils 2.3 % (0.0-10.0); %Lymphocytes 10.3 % (21.0-51.0); %Monocytes 7.3 % (0.0-10.0); %Neutrophils 79.0 % (42.0-75.0); Hematocrit 32.1 % (42.0-52.0); Hemoglobin 9.7 g/dL (14.0-18.0); Mean Corpuscular Hemoglobin 25.8 pg (27.0-31.0); Mean Corpuscular Volume 85.4 fL (78.0-98.0); Platelet Count 224 10x3/uL (130-400); Red Blood Cell (RBC) Count 3.76 mill/uL (4.70-6.10); White Blood Cell (WBC) Count 8.62 10x3/uL (4.8-10.8)
[2025-06-21 06:00] LABS: ALT (SGPT) Less than 7 U/L (Less than 45); AST (SGOT) 15 U/L (11-34); Albumin 3.4 g/dL (3.1-4.5); Alkaline Phosphatase 57 U/L (40-110); Anion Gap 15 mmol/L (10-20); BUN (Urea Nitrogen) 17 mg/dL (8.4-25.7); Bilirubin, Total 0.7 mg/dL (0.3-1.2); Calc. Creatinine Clearance 46 mL/min (70-130); Calcium 8.9 mg/dL (7.8-10.44); Carbon Dioxide 22 mmol/L (23-31); Chloride 107 mmol/L (98-107); Globulin 2.7 g/dL (2.4-3.5); Glucose 98 mg/dL (80-115); Potassium 3.2 mmol/L (3.5-5.1); Sodium 141 mmol/L (136-145)
[2025-06-21 07:20] LABS: Magnesium 2.2 mg/dL (1.6-2.6)
[2025-06-21 07:56] VITALS: TEMP 97.9
[2025-06-21 14:35] LABS: Anion Gap 14 mmol/L (10-20); BUN (Urea Nitrogen) 17 mg/dL (8.4-25.7); Calc. Creatinine Clearance 47 mL/min (70-130); Calcium 9.0 mg/dL (7.8-10.44); Carbon Dioxide 22 mmol/L (23-31); Chloride 107 mmol/L (98-107); Glucose 155 mg/dL (80-115); Potassium 3.9 mmol/L (3.5-5.1); Sodium 139 mmol/L (136-145)
[2025-06-21 16:25] VITALS: BMI 38.0
[2025-06-21 16:28] VITALS: BP 126/68
== END 2025-06-21 18:09 | disposition home or self-care (01) | DRG 291 ==
LOC: ERS 23:21 → OBS 06-19 03:23 → OBSVTOIN 06-19 09:02 → 2NO 06-20 18:37
PROVIDERS: ADMIT Family Medicine; ATTEND Family Medicine
DX: I13.0 Hypertensive heart and chronic kidney disease with heart failure and stage 1 through stage 4 chronic kidney disease, or unspecified chronic kidney disease (principal); I50.23 Acute on chronic systolic (congestive) heart failure; N18.4 Chronic kidney disease, stage 4 (severe); E78.5 Hyperlipidemia, unspecified; E11.22 Type 2 diabetes mellitus with diabetic chronic kidney disease; I42.0 Dilated cardiomyopathy; I25.10 Atherosclerotic heart disease of native coronary artery without angina pectoris; E87.6 Hypokalemia; Z95.5 Presence of coronary angioplasty implant and graft; Z88.8 Allergy status to other drugs, medicaments and biological substances; Z79.899 Other long term (current) drug therapy; I25.2 Old myocardial infarction; Z86.73 Personal history of transient ischemic attack (TIA), and cerebral infarction without residual deficits; Z95.810 Presence of automatic (implantable) cardiac defibrillator; Z79.2 Long term (current) use of antibiotics
CPT/HCPCS: 36415; 36416; 71045; 80053; 82728; 83036; 83540; 83550; 83735; 83880; 84484; 85025; 85379; 87636; 93005; 97139; J1250; J1940